=== PATIENT | male | born 1955 | race Caucasian/White ===

== ENCOUNTER 2023-03-09 07:44 | Day surgery (SDC) | payer MEDICARE, BC ==
[~2023-03-09 07:44] MED LIST: Lactated Ringers 1,000 ML IV SCH; Sodium Chloride 0.9% 10 ML Syringe FLUSH PRN
[2023-03-09] MEDS ORDERED: fentaNYL 100 MCG/2 ML SDV IV ONE (07:45)
[2023-03-09] MEDS ORDERED: Midazolam 1 MG/ML 2 ML SDV IV ONE (07:45)
[2023-03-09] MEDS ORDERED: Propofol 200 MG/20 ML SDV IV ONE (07:45)
[2023-03-09] MEDS ORDERED: Ketamine 500 mg/10 ML MDV IV ONE (07:45)
[2023-03-09] MEDS ORDERED: Simethicone Drops 40 MG/0.6 ML 30 ML Bottle PO ONE (09:32)
== END 2023-03-09 12:08 | disposition home or self-care (01) ==
LOC: FB.SDS 07:44
PROVIDERS: ATTEND Surgery
DX: K57.30 Diverticulosis of large intestine without perforation or abscess without bleeding (principal); I10 Essential (primary) hypertension; E78.5 Hyperlipidemia, unspecified; Z98.890 Other specified postprocedural states; Z79.899 Other long term (current) drug therapy
CPT/HCPCS: 45378; A9270; J2250; J2704; J3010; J3490; J7120